=== PATIENT | male | born 1960 | race American Indian/Alaskan Native ===

== ENCOUNTER 2017-01-10 04:44 | Emergency (ER) | payer BC ==
[2017-01-10] MEDS ORDERED: Sodium Chloride 0.9% 1,000 ML IV ONE (07:53)
[2017-01-10] MEDS ORDERED: Sodium Chloride 0.9% 1,000 ML ONE (08:14)
[2017-01-10 08:18] LABS: BASO # 0.2 K/uL (0.0-0.2); BASO % 1.5 % (0.0-2.0); EOS # 0.3 K/uL (0.0-0.7); EOS % 2.3 % (0.0-4.0); HEMOGLOBIN 14.3 g/dL (12.0-18.0); LYMPH % 29.8 % (20.0-40.0); MEAN CELL VOLUME 92.8 fL (80.0-94.0); MEAN CORPUSCULAR HEMOGLOBIN 30.2 pg (27.0-31.0); MEAN CORPUSCULAR HGB CONC 32.5 g/dL (33.0-37.0); MEAN PLATELET VOLUME 8.3 fL (7.2-11.7); MONO # 1.2 K/uL (0.0-0.8); MONO % 9.3 % (0.0-10.0); NEUT # 7.6 K/uL (1.8-7.0); NEUT % 57.1 % (50.0-75.0); NRBC % 0.1 % (0.0-2.0); RBC 4.75 Mil/uL (4.40-5.90); RED CELL DISTRIBUTION WIDTH 13.3 % (11.5-14.5); WHITE BLOOD COUNT 13.3 K/uL (4.8-10.8)
[2017-01-10 08:20] LABS: SQUAMOUS EPITHIAL < 1 /hpf (0-5); URINE BACTERIA RARE (<OCC); URINE BILIRUBIN NEGATIVE (NEGATIVE); URINE CLARITY Clear (Clear); URINE COLOR Straw (YELLOW); URINE GLUCOSE (UA) NORMAL (Normal); URINE LEUKOCYTE ESTERASE NEG Leu/uL (Negative); URINE NITRATE NEGATIVE (NEGATIVE); URINE PROTEIN NEGATIVE (NEGATIVE); URINE UROBILINOGEN NORMAL mg/dL (0.2-1.0)
[2017-01-10 08:23] LABS: URINE BLOOD TRACE (NEGATIVE)
[2017-01-10 08:25] LABS: ALBUMIN 4.2 g/dL (3.5-5.0)
[2017-01-10 08:28] LABS: ALB/GLOB RATIO 1.2 (1.0-2.1); AST/SGOT 24 U/L (17-59); GFR AFRICAN-AMERICAN > 60; GFR NON-AFRICAN AMERICAN > 60
[2017-01-10 08:29] LABS: ALT/SGPT 26 U/L (21-72); BLOOD UREA NITROGEN 19 mg/dL (9-20); CALCIUM 9.2 mg/dl (8.6-10.4); LIPASE 156 U/L (23-300)
--- NOTE | 2017-01-10 10:32 | RAD ---
HISTORY: cough, r/o infiltrate COMPARISON: 02/26/2014 FINDINGS: LUNGS: No active pulmonary disease. PLEURA: No significant pleural effusion identified, no pneumothorax apparent. CARDIOVASCULAR: Normal. OSSEOUS STRUCTURES: No significant abnormalities. VISUALIZED UPPER ABDOMEN: Normal. OTHER FINDINGS: None. IMPRESSION: No active disease.
--- NOTE | 2017-01-10 10:34 | CT ---
PROCEDURE: CT Abdomen and Pelvis without intravenous contrast HISTORY: L flank and LLQ pain COMPARISON: 07/28/2016 TECHNIQUE: CT scan of the abdomen and pelvis was performed without administration of oral or intravenous contrast. Coronal and sagittal reformatted images were obtained. Radiation dose: Total exam DLP = 1255.72 mGy-cm. This CT exam was performed using one or more of the following dose reduction techniques: Automated exposure control, adjustment of the mA and/or kV according to patient size, and/or use of iterative reconstruction technique. FINDINGS: LOWER THORAX: The lung bases are clear the. LIVER: Normal in size. No gross lesion or ductal dilatation. GALLBLADDER AND BILE DUCTS: No calcified gallstones. PANCREAS: Normal in size. No gross lesion or ductal dilatation. SPLEEN: Normal in size. ADRENALS: Normal in size without discrete nodule. KIDNEYS AND URETERS: Normal in size. There is mild left perinephric fat stranding, fullness in the left collecting system, and mild dilatation of the left ureter without evidence of obstructing stone. There are small nonobstructing stones in the lower pole of the right kidney, the largest measures 3 x 5 mm nonobstructing stone in the lower pole of the right kidney. No hydronephrosis. No solid mass. VASCULATURE: No aortic aneurysm. BOWEL: The small bowel loops are normal in caliber. There are scattered left colonic diverticula without CT evidence for acute diverticulitis. No evidence of bowel dilatation, wall thickening or obstruction. APPENDIX: Normal appendix. PERITONEUM: No free fluid. No free air. LYMPH NODES: No enlarged lymph nodes. BLADDER: Grossly normal in appearance. REPRODUCTIVE: Unremarkable. BONES: No acute fracture. There is mild dextroscoliosis in the lumbar spine and multilevel degenerative changes. OTHER FINDINGS: There are bilateral small fat containing inguinal hernias. IMPRESSION: 1. Left perinephric fat stranding, mild fullness in the left renal collecting system and mild diffuse dilatation of the left ureteral without evidence of obstructing stone yield could represent recent passage of a renal/ ureteral stone. No evidence of obstructive uropathy. 2. Right nephrolithiasis. 3. Mild left colonic diverticulosis without CT evidence for acute diverticulitis.
[2017-01-10 11:58] VITALS: BP 126/54; PULSE 69; RESP 20; TEMP 97.7; O2SAT 98
--- NOTE | 2017-01-10 12:02 | C.PDOC ---
History Of Present Illness 56-year-old male, presents to the emergency department with multiple complaints. Patient states he has been experiencing one week duration of left sided flank and left-lower quadrant abdominal pain. Pain is described as a burning sensation. Patient also reports pain in right great toe for the past 2- 3weeks. States he was seen in an urgent care on 01/03 and diagnosed with gout. Patient given Motrin and Prednisone which he was taking with no relief, resulting in him coming to the ED for further evaluation. Patients third complaint is a non-productive, persistent cough x1 month. He denies chest pain, shortness of breath, numbness weakness, nausea/vomiting, symptoms, fever, or any other associated symptoms. No other complaints at this time. Time Seen by Provider: 01/10/17 06:07 Chief Complaint (Nursing): Lower Extremity Problem/Injury History Per: Patient History/Exam Limitations: no limitations Onset/Duration Of Symptoms: Days Current Symptoms Are (Timing): Still Present Severity: Moderate Past Medical History Reviewed: Historical Data, Nursing Documentation Vital Signs: Last Vital Signs Temp 97.7 F 01/10/17 11:57 Pulse 69 01/10/17 11:57 Resp 20 01/10/17 11:57 BP 126/54 L 01/10/17 11:57 Pulse Ox 98 01/10/17 13:27 - Medical History PMH: Kidney Stones Family History: States: No Known Family Hx - Social History Hx Tobacco Use: No Hx Alcohol Use: Yes Hx Substance Use: No - Immunization History Hx Tetanus Toxoid Vaccination: No Hx Influenza Vaccination: No Hx Pneumococcal Vaccination: No Review Of Systems Except As Marked, All Systems Reviewed And Found Negative. Constitutional: Negative for: Fever, Chills Cardiovascular: Negative for: Chest Pain Respiratory: Positive for: Cough. Negative for: Shortness of Breath, Sputum Gastrointestinal: Positive for: Abdominal Pain. Negative for: Nausea, Vomiting Musculoskeletal: Positive for: Foot Pain Skin: Negative for: Rash Neurological: Negative for: Weakness, Numbness, Headache, Dizziness Physical Exam - Physical Exam Appears: Non-toxic, No Acute Distress Skin: Warm, Dry, No Rash Eye(s): bilateral: Normal Inspection Neck: Normal ROM Cardiovascular: Rhythm Regular, No Murmur Respiratory: Normal Breath Sounds, No Accessory Muscle Use Gastrointestinal/Abdominal: Soft, Tenderness (LLQ), No Guarding, No Rebound Extremity: Normal ROM, Tenderness, No Deformity, Swelling, Other (Left lower ext : first digit w moderate swell and tenderness. Pulses intact) Pulses: Left Dorsalis Pedis: Normal, Right Dorsalis Pedis: Normal ED Course And Treatment - Laboratory Results Result Diagrams: 01/10/17 08:13 01/10/17 08:13 O2 Sat by Pulse Oximetry: 98 (on RA) Pulse Ox Interpretation: Normal - CT Scan/US ct abd/pel Other Rad Studies (CT/US): Read By Radiologist, Radiology Report Reviewed CT/US Interpretation: Accession No. : [id number]. Patient Name / ID : SILVANO JOE / [id number]. Exam Date : 01/10/2017 08:34:05 ( Approved ). Study Comment : Sex / Age : M / 56Y. Creator : SWAPNIL CARIAS MD. Dictator : SWAPNIL CARIAS MD. Dopster : Boatswains Mate : SWAPNIL CARIAS MD. Approver2 : Report Date : 01/10/2017 10:33:02. My Comment : . PROCEDURE: CT Abdomen and Pelvis without intravenous contrast. HISTORY: L flank and LLQ pain. COMPARISON: 07/28/2016. TECHNIQUE: CT scan of the abdomen and pelvis was performed without administration of oral or intravenous contrast. Coronal and sagittal reformatted images were obtained. Radiation dose: Total exam DLP = 1255.72 mGy-cm. This CT exam was performed using one or more of the following dose reduction techniques: Automated exposure control, adjustment of the mA and/ or kV according to patient size, and/or use of iterative reconstruction technique. FINDINGS: LOWER THORAX: The lung bases are clear the. LIVER: Normal in size. No gross lesion or ductal dilatation. GALLBLADDER AND BILE DUCTS: No calcified gallstones. PANCREAS: Normal in size. No gross lesion or ductal dilatation. SPLEEN: Normal in size. ADRENALS: Normal in size without discrete nodule. KIDNEYS AND URETERS: Normal in size. There is mild left perinephric fat stranding, fullness in the left collecting system, and mild dilatation of the left ureter without evidence of obstructing stone. There are small nonobstructing stones in the lower pole of the right kidney, the largest measures 3 x 5 mm nonobstructing stone in the lower pole of the right kidney. No hydronephrosis. No solid mass. VASCULATURE: No aortic aneurysm. BOWEL: The small bowel loops are normal in caliber. There are scattered left colonic diverticula without CT evidence for acute diverticulitis. No evidence of bowel dilatation, wall thickening or obstruction. APPENDIX: Normal appendix. PERITONEUM: No free fluid. No free air. LYMPH NODES: No enlarged lymph nodes. BLADDER: Grossly normal in appearance. REPRODUCTIVE: Unremarkable. BONES: No acute fracture. There is mild dextroscoliosis in the lumbar spine and multilevel degenerative changes. OTHER FINDINGS: There are bilateral small fat containing inguinal hernias. IMPRESSION: 1. Left perinephric fat stranding, mild fullness in the left renal collecting system and mild diffuse dilatation of the left ureteral without evidence of obstructing stone yield could represent recent passage of a renal/ ureteral stone. No evidence of obstructive uropathy. 2. Right nephrolithiasis. 3. Mild left colonic diverticulosis without CT evidence for acute diverticulitis. Medical Decision Making Medical Decision Making: The xray of the chest was negative. Foot xray was (+) for possible avulsion fx of the right great toe. Patient placed in Ortho shoe and was instructed to follow up with Podiatry. On re-exam, the patient reports improvement of symptoms. A&O x 3, Ambulatory in the ED with steady gait. Lungs are CTA, heart is RRR, abdomen is soft, non-tender and tolerating PO well. Follow up with the medical doctor/medical clinic within 1-2 days. Return if worsened. Disposition - Disposition Referrals: Moreno Waters DPM [Doctor Podiatric Medicine] - Reynaldo Garcia MD [Staff Provider] - Lorie Medina MD [Staff Provider] - Bert Mi MD [Staff Provider] - Disposition: HOME/ ROUTINE Disposition Time: 12:00 Condition: GOOD Additional Instructions: Follow up with the medical doctor within 1-2 days. Return if worsened. Prescriptions: Benzonatate [Tessalon Perles] 200 mg PO TID PRN #21 sgl PRN Reason: Cough Ciprofloxacin [Cipro] 1 tab PO BID #14 tab Naproxen [Naprosyn] 500 mg PO BID #20 tab oxyCODONE/Acetaminophen [Percocet 5/325 mg Tab] 1 tab PO QID PRN #10 tab PRN Reason: Pain Tamsulosin [Flomax] 0.4 mg PO DAILY #10 cap Instructions: Renal Colic (ED), Swollen Joint (ED) - Clinical Impression Clinical Impression: Kidney stone, Foot pain, Hydronephrosis, Upper respiratory infection - PA / [employer] / Resident Statement MD/DO has reviewed & agrees with the documentation as recorded. - Scribe Statement The provider has reviewed the documentation as recorded by the Scribe (Branden Norwood) All medical record entries made by the Scribe were at my direction and personally dictated by me. I have reviewed the chart and agree that the record accurately reflects my personal performance of the history, physical exam, medical decision making, and the department course for this patient. I have also personally directed, reviewed, and agree with the discharge instructions and disposition.
--- NOTE | 2017-01-10 12:05 | RAD ---
PROCEDURE: Right Foot Radiographs. HISTORY: pain and swelling to the great toe and mid foot COMPARISON: None. FINDINGS: BONES: Small ossific density medial to the 1st metatarsal head may reflect small avulsion fracture. JOINTS: Hallux valgus. Remaining joints are preserved. SOFT TISSUES: Soft tissue swelling medial to the 1st metatarsal head. OTHER FINDINGS: None. IMPRESSION: Possible small avulsion fracture from the medial aspect 1st metatarsal head with surrounding soft tissue swelling. Hallux valgus.
== END 2017-01-10 12:19 | disposition home or self-care (01) ==
LOC: SUPCPDRO 04:44 → C.ER 04:44
DX: N20.0 Calculus of kidney (principal); N13.30 Unspecified hydronephrosis; M79.671 Pain in right foot; J06.9 Acute upper respiratory infection, unspecified
CPT/HCPCS: 71010; 73630; 74176; 80053; 81001; 83690; 85025; 87086; 96361; 96374; 96375; 99285; J1885; J7040